=== PATIENT | female | born 1930 | race Caucasian/White ===

== ENCOUNTER 2017-04-24 18:10 | Emergency (ER) | payer MEDICARE, OTHER ==
[~2017-04-24] VITALS: Ht 167.6 cm; Wt 65.0 kg
[~2017-04-24 18:10] MED LIST: ASPI81 PO; ATOR40TA PO; CLOP75 PO; FURO20 PO; GABA100C4 PO; HYDR25 PO; K-TA10TA5 PO; LEVO75TA42 PO; LEXA10TA PO; LORA0.5T PO; LORTA5 PO; METO50TA PO; MIRTA15 PO; MORP15TA3 PO; REST15CA PO
[2017-04-24] MEDS ORDERED: IOHEXOL 350 MG/ML 10 ML VIAL (for RAD DIAG) IVCONTRAST ONE (18:11)
[2017-04-24 18:51] VITALS: BP 221/107; PULSE 81; RESP 16; TEMP 98.5; O2SAT 98
--- NOTE | 2017-04-24 19:23 | PD ---
HPI Chief Complaint: Chest Pain Time Seen by Provider: 19:04 Travel History International Travel<30 days: No Contact w/Intl Traveler<30days: No Traveled to known affect area: No History of Present Illness HPI 87 years old female complains of chest pain. Patient states that the pain started several weeks ago. Patient states the pain pressure pain localized left chest. Patient states the pain has been constant for the past several weeks. Patient states that she feeling like an elephant sitting on her chest. Patient states that the pain radiated to the neck and down to the left leg. Patient denies any coughing congestion. Patient denies any nausea vomiting diaphoresis. Patient denies any fever chills. Patient has history of hypertension and hyperlipidemia. Patient denies history of diabetes. Patient is a nonsmoker. Patient has family history of heart disease. Patient has history of abdominal aortic aneurysm. Last CT of the abdomen done in 2015 shows intrarenal saccular aneurysm measuring 4.6 cm in transverse dimension. Patient states that her blood pressure has been elevated for the past several days. On a scale of 1-10 the pain is a 7. PFSH Past Medical History AAA: Yes (3.7) Arthritis: Yes (POLYMYALGIA ) Asthma: No Autoimmune Disease: Yes (FIBROMYALGIAS POLYMYALGIAS) Blood Disorders: No Anxiety: Yes Depression: No Heart Rhythm Problems: Yes Cancer: No Cardiac Catheterization: No Cardiovascular Problems: Yes High Cholesterol: Yes Chemotherapy: No Chest Pain: Yes Congestive Heart Failure: No COPD: No Cerebrovascular Accident: No Diabetes: No Patient Takes Glucophage: No Diminished Hearing: No Diverticulitis: Yes Endocrine: No Fibromyalgia: Yes Gastrointestinal Disorders: Yes GERD: No Glaucoma: No Genitourinary: No Headaches: Yes Hepatitis: No Hiatal Hernia: Yes Heparin Induced Thrombocytopen: No Hypertension: Yes Immune Disorder: Yes Kidney Stones: No Musculoskeletal: Yes (FIBROMYALGIA. SPONDYLOSIS) Neurologic: Yes Psychiatric: No Reproductive: No Respiratory: Yes Immunizations Current: Yes Migraines: Yes Myocardial Infarction: No Radiation Therapy: No Renal Failure: No Seizures: No Sickle Cell Disease: No Sleep Apnea: No Thyroid Disease: No Ulcer: No Tetanus Vaccination: > 5 Years Influenza Vaccination: Yes PNEUMOCCOCAL Vaccine (Year): 2 Menopausal: Yes : 3 Para: 1 Miscarriage: 0 : 0 Past Surgical History Abdominal Surgery: Yes (HERNIA REPAIR) AICD: No Appendectomy: Yes (1954) Arteriovenous Shunt: No Body Medical Devices: FIBRO AND POLY MYALGIA Cardiac Surgery: No Cholecystectomy: Yes (1984) Coronary Artery Bypass Graft: No Ear Surgery: No Endocrine Surgery: No Eye Surgery: No Genitourinary Surgery: No Gynecologic Surgery: Yes (PROLAPSED UTERUS ) Insulin Pump: No Joint Replacement: No Neurologic Surgery: No Oral Surgery: Yes Pacemaker: No Thoracic Surgery: No Other Surgery: Yes (HERNIA REPAIR) Social History Alcohol Use: No Tobacco Use: No (QUIT 1957) Substance Use: No Allergies-Medications (Allergen,Severity, Reaction): Coded Allergies: Smoke (Verified Allergy, Severe, Cough, 04/24/17) cat dander (Unverified Allergy, Severe, Itching, 04/24/17) grass pollen (Unverified Allergy, Severe, Sneezing, 04/24/17) house dust (Unverified Allergy, Severe, Sneezing, 04/24/17) meperidine (Unverified Allergy, Severe, ANXIETY, 04/24/17) pesticide (Unverified Allergy, Severe, Itching, 04/24/17) Reported Meds & Prescriptions Reported Meds & Active Scripts Active Active Prescriptions or Reported Medications Unobtainable Review of Systems General / Constitutional: No: Fever Eyes: No: Visual changes HENT: No: Headaches Cardiovascular: Positive: Chest Pain or Discomfort Respiratory: No: Shortness of Breath Gastrointestinal: No: Abdominal Pain Genitourinary: No: Dysuria Musculoskeletal: No: Pain Skin: No Rash Neurologic: No: Weakness Psychiatric: No: Depression Endocrine: No: Polydipsia Hematologic/Lymphatic: No: Easy Bruising Physical Exam Narrative GENERAL: Well-nourished, well-developed patient. SKIN: Focused skin assessment warm/dry. HEAD: Normocephalic. EYES: No scleral icterus. No injection or drainage. NECK: Supple, trachea midline. No JVD or lymphadenopathy. CARDIOVASCULAR: Regular rate and rhythm without murmurs, gallops, or rubs. RESPIRATORY: Breath sounds equal bilaterally. No accessory muscle use. GASTROINTESTINAL: Abdomen soft, non-tender, nondistended. MUSCULOSKELETAL: No cyanosis, or edema. BACK: Nontender without obvious deformity. No CVA tenderness. Neurologic exam normal. Data Data Last Documented VS Vital Signs Date Time Temp Pulse Resp B/P (MAP) Pulse Ox O2 Delivery O2 Flow Rate FiO2 04/24/17 21:48 95 20 176/86 (116) 98 Nasal Cannula 3.00 04/24/17 18:51 98.5 Orders Orders Electrocardiogram (04/24/17 19:15) Complete Blood Count With Diff (04/24/17 19:15) Comprehensive Metabolic Panel (04/24/17 19:15) Creatine Kinase (Cpk) (04/24/17 19:15) Troponin I (04/24/17 19:15) Prothrombin Time / Inr (Pt) (04/24/17 19:15) Act Partial Throm Time (Ptt) (04/24/17 19:15) Urinalysis - C+S If Indicated (04/24/17 19:15) D-Dimer (04/24/17 19:15) Thyroid Stimulating Hormone (04/24/17 19:15) Chest, Single Ap (04/24/17 19:15) Iv Access Insert/Monitor (04/24/17 19:15) Ecg Monitoring (04/24/17 19:15) Oximetry (04/24/17 19:15) Ct Pulmonary Angiogram (04/24/17 19:15) Morphine Inj (Morphine Inj) (04/24/17 20:00) Ondansetron Inj (Zofran Inj) (04/24/17 20:00) Electrocardiogram (04/24/17 20:21) Iohexol 350 Inj (Omnipaque 350 Inj) (04/24/17 18:11) Ed Discharge Order (04/24/17 22:42) Labs Laboratory Tests Test 04/24/17 19:40 04/24/17 21:00 White Blood Count 5.9 TH/MM3 Red Blood Count 4.18 MIL/MM3 Hemoglobin 13.4 GM/DL Hematocrit 40.5 % Mean Corpuscular Volume 96.8 FL Mean Corpuscular Hemoglobin 32.0 PG Mean Corpuscular Hemoglobin Concent 33.0 % Red Cell Distribution Width 13.2 % Platelet Count 197 TH/MM3 Mean Platelet Volume 6.9 FL Neutrophils (%) (Auto) 50.8 % Lymphocytes (%) (Auto) 31.2 % Monocytes (%) (Auto) 12.5 % Eosinophils (%) (Auto) 4.6 % Basophils (%) (Auto) 0.9 % Neutrophils # (Auto) 3.0 TH/MM3 Lymphocytes # (Auto) 1.9 TH/MM3 Monocytes # (Auto) 0.7 TH/MM3 Eosinophils # (Auto) 0.3 TH/MM3 Basophils # (Auto) 0.1 TH/MM3 CBC Comment DIFF FINAL Differential Comment Prothrombin Time 11.4 SEC Prothromb Time International Ratio 1.0 RATIO Activated Partial Thromboplast Time 26.8 SEC D-Dimer Quantitative (PE/DVT) 1.56 MG/L FEU Blood Urea Nitrogen 7 MG/DL Creatinine 0.81 MG/DL Random Glucose 102 MG/DL Total Protein 7.6 GM/DL Albumin 3.6 GM/DL Calcium Level 8.6 MG/DL Alkaline Phosphatase 65 U/L Aspartate Amino Transf (AST/SGOT) 25 U/L Alanine Aminotransferase (ALT/SGPT) 13 U/L Total Bilirubin 0.7 MG/DL Sodium Level 140 MEQ/L Potassium Level 3.9 MEQ/L Chloride Level 102 MEQ/L Carbon Dioxide Level 33.4 MEQ/L Anion Gap 5 MEQ/L Estimat Glomerular Filtration Rate 67 ML/MIN Total Creatine Kinase 88 U/L Troponin I LESS THAN 0.02 NG/ML Thyroid Stimulating Hormone 3rd Gen 0.940 uIU/ML Urine Color LIGHT-YELLOW Urine Turbidity CLEAR Urine pH 7.5 Urine Specific [place] 1.010 Urine Protein NEG mg/dL Urine Glucose (UA) NEG mg/dL Urine Ketones NEG mg/dL Urine Occult Blood NEG Urine Nitrite NEG Urine Bilirubin NEG Urine Urobilinogen LESS THAN 2.0 MG/DL Urine Leukocyte Esterase NEG Urine RBC 2 /hpf Urine WBC 1 /hpf Urine Squamous Epithelial Cells <1 /hpf Microscopic Urinalysis Comment CULT NOT INDICATED MDM Medical Decision Making Medical Screen Exam Complete: Yes Emergency Medical Condition: Yes Interpretation(s) 1923 PM. EKG shows sinus rhythm nonspecific ST-T wave change. 22:35 PM. Chest x-ray shows large hiatal hernia. CT pulmonary angiogram shows no PE. CBC within normal limit. CMP within normal limit. Cardiac enzymes are normal. D-dimer 1.56. UA is negative. Differential Diagnosis Differential diagnosis including angina, CO, PE, pneumothorax, aneurysm. Narrative Course 87-year-old female with left-sided chest pain. History of abdominal aortic aneurysm. Blood pressures elevated. Morphine 2 mg IV. Zofran 4 mg IV. Diagnosis Primary Impression: Atypical chest pain Additional Impression: Uncontrolled hypertension Patient Instructions: General Instructions Additional Instructions: Continue all medication. Contacted personal physician for blood pressure control. Follow-up with personal physician. Return if worse. Return immediately if increasing chest pain or shortness of breath. Med/Other Pt SpecificInfo: No Change to Meds Scripts Unable to Obtain Active Prescriptions or Reported Meds Disposition: 03 DISCHARGE TO SNF Condition: Stable Grayson Garcia MD Apr 24, 2017 19:23
[2017-04-24] MEDS ORDERED: ONDANSETRON HCL 4 MG/2 ML VIAL IV PUSH ONE (20:00)
[2017-04-24] MEDS ORDERED: MORPHINE SULFATE 2 MG/ML INJ IV PUSH ONE (20:00)
[2017-04-24 20:01] VITALS: BP 221/107; PULSE 92; RESP 20; O2SAT 100
[2017-04-24 20:02] VITALS: O2SAT 100
[2017-04-24 20:19] LABS: BASOPHIL # 0.1 TH/MM3 (0-0.2); BASOPHIL % 0.9 % (0.0-2.0); EOSINOPHIL # 0.3 TH/MM3 (0-0.4); EOSINOPHIL % 4.6 % (0.0-4.0); HEMATOCRIT 40.5 % (35.0-46.0); HEMO FLAGS DIFF FINAL; LYMPH % 31.2 % (9.0-44.0); LYMPHOCYTE # 1.9 TH/MM3 (1.0-4.8); MEAN CELL VOLUME 96.8 FL (80.0-100.0); MONO % 12.5 % (0.0-8.0); NEUT % 50.8 % (16.0-70.0); PLATELET COUNT 197 TH/MM3 (150-450); RED BLOOD COUNT 4.18 MIL/MM3 (4.00-5.30); RED CELL DISTRIBUTION WIDTH 13.2 % (11.6-17.2); WHITE BLOOD COUNT 5.9 TH/MM3 (4.0-11.0)
--- NOTE | 2017-04-24 20:28 | RADRPT ---
EXAM DATE/TIME: 04/24/2017 19:23 [facility] COMPARISON: No previous studies available for comparison. INDICATIONS : Chest pain. MEDICAL HISTORY : Diverticulitis. Hypertension. Hernia, hiatal. SURGICAL HISTORY : Cholecystectomy. Appendectomy. section. ENCOUNTER: Initial ACUITY: 1 day PAIN SCORE: 5/10 LOCATION: Bilateral chest FINDINGS: A single view of the chest demonstrates double density projecting over the heart characteristic of a large hiatal hernia. Heart size appears somewhat prominent but well compensated. No confluent infiltr ate. Osseous structures are intact. CONCLUSION: 1. Large hiatal hernia. 2. Compensated cardiomegaly. 3. No confluent infiltrate Parish Lee MD on April 24, 2017 at 20:25 Board Certified Radiologist. This report was verified electronically.
[2017-04-24 20:34] LABS: APTT (PATIENT) 26.8 SEC (24.3-30.1); PROTHROMBIN TIME - PATIENT 11.4 SEC (9.8-11.6)
[2017-04-24 20:44] LABS: ANION GAP 5 MEQ/L (5-15); AST (GOT) 25 U/L (15-37); BICARBONATE 33.4 MEQ/L (21.0-32.0); BLOOD UREA NITROGEN 7 MG/DL (7-18); CHLORIDE 102 MEQ/L (98-107); GLOMERULAR FILTRATION RATE 67 ML/MIN (>89); SODIUM (NA) 140 MEQ/L (136-145)
[2017-04-24 20:56] LABS: POTASSIUM 3.9 MEQ/L (3.5-5.1)
[2017-04-24 21:06] LABS: ALKALINE PHOSPHATASE 65 U/L (45-117); ALT (GPT) 13 U/L (10-53); TOTAL BILIRUBIN ADULT 0.7 MG/DL (0.2-1.0)
[2017-04-24 21:10] LABS: CREATINE KINASE 88 U/L (26-192)
[2017-04-24 21:48] VITALS: BP 176/86; PULSE 95; RESP 20; O2SAT 98
[2017-04-24 22:13] LABS: BLOOD, URINE NEG (NEG); COMMENT (UR) CULT NOT INDICATED; CULTURE IF INDICATED CULT NOT INDICATED; GLUCOSE,URINE NEG (NEG); KETONE, URINE NEG (NEG); NITRITE,URINE NEG (NEG); PH, URINE 7.5 (5.0-8.5); SQUAMOUS EPITHELIAL CELL URINE <1 /hpf (0-5); URINE COLOR LIGHT-YELLOW (YELLW/STRAW)
--- NOTE | 2017-04-24 22:30 | RADRPT ---
EXAM DATE/TIME: 04/24/2017 21:23 [facility] COMPARISON: No previous studies available for comparison. INDICATIONS : Patient complains of chest pain, evaluate for pulmonary emboli. IV CONTRAST: 75 cc Omnipaque 350 (iohexol) IV RADIATION DOSE: 13.75 CTDIvol (mGy) MEDICAL HISTORY : Cardiovascular disease. Hypertension. Aneurysm, abdominal. SURGICAL HISTORY : Appendectomy. Cholecystectomy. ENCOUNTER: Initial ACUITY: 1 day PAIN SCALE: 6/10 LOCATION: chest TECHNIQUE: Volumetric scanning of the chest was performed using a pulmonary embolism protocol MIP images were re constructed. Using automated exposure control and adjustment of the mA and/or kV according to patien t size, radiation dose was kept as low as reasonably achievable to obtain optimal diagnostic quality images. DICOM format image data is available electronically for review and comparison. Follow-up recommendations for detected pulmonary nodules are based at a minimum on nodule size and pa tient risk factors according to Fleischner Society Guidelines. FINDINGS: PULMONARY ARTERIES: No filling defects are seen in the pulmonary arteries through the segmental level. LUNGS: There is no consolidation or pneumothorax . No concerning pulmonary nodule is visualized. Parenchyma l cyst in the right upper lobe. PLEURAE: There is no pleural thickening or pleural effusion. MEDIASTINUM: There is good visualization of the great vessels of the middle mediastinum. No evidence of mediastin al or hilar adenopathy/mass. Large hiatal hernia MUSCULOSKELETAL: Within normal limits for patient age. MISCELLANEOUS: The visualized upper abdominal organs demonstrate no acute abnormality. Exaggerated kyphotic curvatur e of the upper dorsal spine CONCLUSION: 1. Very large hiatal hernia. 2. Except for a benign sub-centimeters parenchymal cyst in the right upper lung, lungs are clear. 3. No pulmonary embolus Parish Lee MD on April 24, 2017 at 22:26 Board Certified Radiologist. This report was verified electronically.
[2017-04-25 01:28] VITALS: BP 179/79; PULSE 88; RESP 16; O2SAT 97
[2017-04-25] MEDS ORDERED: ORPHENADRINE INJ 60 MG/2 ML AMP IM ONE (01:30)
[2017-04-25] MEDS ORDERED: ACETAMINOPHEN/HYDROcodone 325 MG/5 MG TAB PO ONE (08:45)
[2017-04-25 11:08] VITALS: BP 186/100; TEMP 98.3
[2017-04-25] MEDS ORDERED: ZOFR4TAB3 SL (15:49)
--- NOTE | 2017-04-25 17:39 | EKG ---
Date Performed: 04/24/2017 Time Performed: 20:21:52 PTAGE: 87 years EKG: Sinus rhythm Since previous tracing, no significant change noted NORMAL ECG PREVIOUS TRACING : 04/24/2017 18.46 DOCTOR: Mariela Olivier Interpretating Date/Time 04/25/2017 17:38:08
--- NOTE | 2017-04-25 17:39 | EKG ---
Date Performed: 04/24/2017 Time Performed: 18:46:13 PTAGE: 87 years EKG: Sinus rhythm MARKED LEFT AXIS DEVIATION Since previous tracing, no significant change noted ABNORMAL ECG PREVIOUS TRACING : 09/04/2015 18.32 DOCTOR: Mariela Olivier Interpretating Date/Time 04/25/2017 17:37:52
[2017-04-26] MEDS ORDERED: DESL5TAB4 PO (13:41)
[2017-04-26] MEDS ORDERED: AMBI5TAB PO (13:41)
[2017-04-26] MEDS ORDERED: ISOS30TA3 PO (13:41)
[2017-04-26] MEDS ORDERED: DEXI30CA2 PO (13:41)
[2017-04-26] MEDS ORDERED: LIPI40TA PO (13:41)
[2017-04-26] MEDS ORDERED: PLAV75TA29 PO (13:41)
[2017-04-26] MEDS ORDERED: CALCTAB94 PO (13:41)
[2017-04-26] MEDS ORDERED: LEXA10TA PO (13:41)
[2017-04-26] MEDS ORDERED: ENEMENE5 RECTAL (14:07)
[2017-04-26] MEDS ORDERED: NEUR100C PO (14:07)
[2017-04-26] MEDS ORDERED: IPRASOL NEB (14:07)
[2017-04-26] MEDS ORDERED: HYDR-3366 PO (14:07)
[2017-04-26] MEDS ORDERED: REME15TA PO (14:07)
[2017-04-26] MEDS ORDERED: TYLE325T PO (14:07)
[2017-04-26] MEDS ORDERED: POLY99.0 EACH EYE (14:07)
[2017-04-26] MEDS ORDERED: CHOL1CHW5 PO (14:07)
[2017-04-26] MEDS ORDERED: PRIL20TA2 PO (14:07)
[2017-04-26] MEDS ORDERED: PROM1SUP7 RECTAL (14:07)
[2017-04-26] MEDS ORDERED: LISI10TA3 PO (14:07)
[2017-04-26] MEDS ORDERED: COLA100C5 PO (14:07)
[2017-04-26] MEDS ORDERED: LEVO.125 PO (14:07)
[2017-04-26] MEDS ORDERED: METO25TA3 PO (14:07)
[2017-04-26] MEDS ORDERED: TAB-TAB PO (14:07)
[2017-04-26] MEDS ORDERED: SENN1TAB27 PO (14:07)
[2017-04-26] MEDS ORDERED: MIRA3350 PO (14:07)
[2017-04-26] MEDS ORDERED: MILKSUS PO (14:07)
[2017-04-26] MEDS ORDERED: MORP1TAB24 PO (14:07)
[2017-04-26] MEDS ORDERED: CYAN100 PO (14:07)
[2017-04-26] MEDS ORDERED: CITRSOL4 PO (14:07)
[2017-04-26] MEDS ORDERED: LORA-392 PO (14:07)
[2017-04-26] MEDS ORDERED: DULC10SU3 RECTAL (14:07)
[2017-04-26] MEDS ORDERED: FERR325T18 PO (14:07)
[2017-04-26] MEDS ORDERED: CLON.1 PO (14:07)
[2017-04-26] MEDS ORDERED: TRAZ100T10 PO (14:07)
[2017-04-28] MEDS ORDERED: MORP1TAB24 PO (13:16)
[2017-04-28] MEDS ORDERED: POTA-163 PO (13:18)
== END 2017-04-25 11:09 ==
LOC: NEPC 18:10
DX: R07.89 Other chest pain (principal); I10 Essential (primary) hypertension; I71.4 Abdominal aortic aneurysm, without rupture; R94.31 Abnormal electrocardiogram [ECG] [EKG]
CPT/HCPCS: 71010; 71275; 80053; 81001; 82550; 84443; 84484; 85025; 85379; 85610; 85730; 93005; 96372; 96374; 96375; 99285; J2270; J2360; J2405; Q9967